=== PATIENT | female | born 1970 | race Two or more races ===

== ENCOUNTER 2023-11-03 17:36 | Emergency (ER) | payer BC ==
[~2023-11-03] VITALS: Ht 157.5 cm; Wt 58.1 kg
[2023-11-03] MEDS ORDERED: TIROSINT75 MCG (17:50)
[2023-11-03] MEDS ORDERED: CRESTOR10 MG PO (17:50)
[2023-11-03] MEDS ORDERED: OMEPRAZOLE20 MG PO (17:51)
[2023-11-03] MEDS ORDERED: BENTYL10 MG/1 ML IM (17:51)
[2023-11-03] MEDS ORDERED: 0.9 % SODIUM CHLORIDE 1,000 ML IV SCH (18:01)
[2023-11-03] MEDS ORDERED: KETOROLAC TROMETHAMINE 30 MG VIAL ONE (18:08)
[2023-11-03] MEDS ORDERED: BARIUM SULFATE 450 ML ORAL.SUSP PO ONE (18:08)
[2023-11-03] MEDS ORDERED: KETOROLAC TROMETHAMINE 30 MG VIAL IV ONE (18:15)
[2023-11-03 18:26] LABS: HEMATOCRIT 40.3 % (36.0-45.00); MEAN CELL VOLUME 89.3 fL (80.00-100.00); MEAN CORPUSCULAR HEMOGLOBIN 31.1 pg (27.00-32.0); MEAN CORPUSCULAR HGB CONC 34.8 g/dl (32.0-36.0); PLATELET COUNT 309 K/uL (150-450); RED BLOOD COUNT 4.52 M/uL (4.00-6.00); RED CELL DISTRIBUTION WIDTH 13.5 % (11.5-14.5)
[2023-11-03 18:39] LABS: CALCIUM 9.7 mg/dL (8.5-10.1); CREATININE SERUM 0.88 mg/dL (0.55-1.02); GFR 67.22; POTASSIUM 4.24 mEq/L (3.5-5.1)
[2023-11-03 22:03] LABS: PH,URINE 7.5 (5.0-8.0); URINE APPEARANCE Clear; URINE BILIRRUBIN Negative (NEGATIVE); URINE BLOOD Trace; URINE COLOR Yellow; URINE GLUCOSE Negative (NEGATIVE); URINE LEUKOCYTE Trace; URINE NITRATE Negative; URINE PROTEIN Negative (NEGATIVE); URINE UROBILINOGEN 0.2 E.U./dl
[2023-11-03 22:04] LABS: URINE BACTERIA 7.5 uL (0.0-1933); URINE RBC 9.8 uL (0.0-20.8); URINE WBC 1.8 uL (0.0-23.2)
[2023-11-03 22:05] LABS: URINE EPITHELIAL CELLS 0.3 uL (0.0-38.8)
[2023-11-04] MEDS ORDERED: OxyCODONE HCL/APAP UD (PERCOCET) PO STA (01:23)
[2023-11-04] MEDS ORDERED: PERCOCET 5-3251 EACH PO (01:28)
[2023-11-04] MEDS ORDERED: ONDANSETRON ODT4 MG PO ×2 (01:31)
[2023-11-04] MEDS ORDERED: CEPHALEXIN500 MG PO (01:31)
== END 2023-11-04 01:39 ==
LOC: ER 17:36
PROVIDERS: Emergency Medicine
DX: R10.9 Unspecified abdominal pain (principal); Z90.5 Acquired absence of kidney; I10 Essential (primary) hypertension; E03.8 Other specified hypothyroidism
CPT/HCPCS: 36415; 74177; Q9965